=== PATIENT | male | born 1980 | race Two or more races ===

== ENCOUNTER 2020-11-13 13:51 | Emergency (ER) | payer BC ==
[~2020-11-13] VITALS: Ht 172.7 cm; Wt 88.0 kg
[2020-11-13 14:03] VITALS: BP 166/101
[2020-11-13 14:23] LABS: BILIRUBIN,URINE NEGATIVE (NEG); CLARITY,URINE CLEAR; COLOR,URINE YELLOW; NITRITE,URINE NEGATIVE (NEG); PH,URINE 7.5 (<5.0-8.0); PROTEIN,URINE NEGATIVE (NEG-TRACE)
[2020-11-13 14:30] LABS: BACTERIA,URINE 0 /HPF (0-FEW); RBC,URINE 0 /HPF (0-2); WBC,URINE 0 /HPF (0-4)
--- NOTE | 2020-11-13 14:40 | RAD ---
XR THORACIC SPINE 3VIEWS DATE: 11/13/2020 2:23 PM INDICATION: back pain COMPARISON: None. FINDINGS: The upper thoracic vertebrae are obscured on the lateral view by overlying soft tissue and osseous st ructures. Bones/Alignment: No evidence of acute compression fracture. No listhesis. Joints: The disc space heights are normal. Miscellaneous: None. IMPRESSION: No evidence of acute compression fracture. Electronically signed by: Roberto Olmedo MD (11/13/2020 2:37 PM) [id number]
[2020-11-13] MEDS ORDERED: CYCL10TA2 PO (15:04)
[2020-11-13] MEDS ORDERED: METH4TAB2 PO (15:04)
[2020-11-13] MEDS ORDERED: DICL50TA2 PO (15:04)
--- NOTE | 2020-11-13 15:05 | PHYS DOC ---
Past Medical History Past Medical History: No Pertinent History Past Surgical History: No Surgical History Smoking Status: Never Smoker Alcohol Use: Occasionally General Adult EDM: Chief Complaint: BACK PAIN OR INJURY HPI: HPI: Patient is a 40 year old male with no significant medical history who presents to the ED today complaining of 5 out of 10 chronic bilateral shoulder pain as well as left mid back pain. 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 He states yesterday he was doing some home remodeling work and developed left mid back pain. Patient denies falling. Denies any pain radiating to bilateral upper or lower extremities. Denies any loss of bowel or bladder function. Describes the pain as electrical and intermittent. Denies anything specifically relieving the pain. Review of Systems: Review of Systems: Constitutional: Denies fever or chills. [] Eyes: Denies change in visual acuity. [] HENT: Denies nasal congestion or sore throat. [] Respiratory: Denies cough or shortness of breath. [] Cardiovascular: Denies chest pain or edema. [] GI: Denies abdominal pain, nausea, vomiting, bloody stools or diarrhea. [] : Denies dysuria. [] Musculoskeletal: Reports chronic bilateral shoulder pain, left mid back pain. Integument: Denies rash. [] Neurologic: Denies headache, focal weakness or sensory changes. [] Psychiatric: Denies depression or anxiety. [] Heart Score: Risk Factors: Risk Factors: DM, Current or recent (<one month) smoker, HTN, HLP, family history of CAD, obesity. Risk Scores: Score 0 - 3: 2.5% MACE over next 6 weeks - Discharge Home Score 4 - 6: 20.3% MACE over next 6 weeks - Admit for Clinical Observation Score 7 - 10: 72.7% MACE over next 6 weeks - Early Invasive Strategies Allergies: Allergies: Allergies Coded Allergies Type Severity Reaction Last Updated Verified No Known Drug Allergies 11/13/20 No Physical Exam: PE: Constitutional: Well developed, well nourished, no acute distress, non-toxic appearance. [] HENT: Normocephalic, atraumatic, bilateral external ears normal, oropharynx moist, no oral exudates, nose normal. [] Eyes: PERRLA, EOMI, conjunctiva normal, no discharge. [] Neck: Normal range of motion, no tenderness, supple, no stridor. [] Cardiovascular:Heart rate regular rhythm, no murmur [] Lungs & Thorax: Bilateral breath sounds clear to auscultation [] Abdomen: Bowel sounds normal, soft, no tenderness, no masses, no pulsatile masses. [] Skin: Warm, dry, no erythema, no rash. [] Back: No tenderness, no CVA tenderness. [] Extremities: No tenderness, no cyanosis, no clubbing, ROM intact, no edema. [] Neurologic: Alert and oriented X 3, normal motor function, normal sensory function, no focal deficits noted. [] Psychologic: Affect normal, judgement normal, mood normal. [] Current Patient Data: Labs: Laboratory Tests Test 11/13/20 14:10 Urine Collection Type Unknown Urine Color Yellow Urine Clarity Clear Urine pH 7.5 (<5.0-8.0) Urine Specific [place] <=1.005 (1.000-1.030) Urine Protein Negative mg/dL (NEG-TRACE) Urine Glucose (UA) Negative mg/dL (NEG) Urine Ketones (Stick) Negative mg/dL (NEG) Urine Blood Negative (NEG) Urine Nitrite Negative (NEG) Urine Bilirubin Negative (NEG) Urine Urobilinogen Dipstick 1.0 mg/dL (0.2 mg/dL) Urine Leukocyte Esterase Negative (NEG) Urine RBC 0 /HPF (0-2) Urine WBC 0 /HPF (0-4) Urine Bacteria 0 /HPF (0-FEW) Vital Signs: Vital Signs Date Time Temp Pulse Resp B/P (MAP) Pulse Ox O2 Delivery O2 Flow Rate FiO2 11/13/20 14:03 97.8 68 18 166/101 (122) 98 Room Air 97.8 EKG: EKG: [] Radiology/Procedures: Radiology/Procedures: []PROCEDURE: THORACIC SPINE 3V XR THORACIC SPINE 3VIEWS DATE: 11/13/2020 2:23 PM INDICATION: back pain COMPARISON: None. FINDINGS: The upper thoracic vertebrae are obscured on the lateral view by overlying soft tissue and osseous structures. Bones/Alignment: No evidence of acute compression fracture. No listhesis. Joints: The disc space heights are normal. Miscellaneous: None. IMPRESSION: No evidence of acute compression fracture. Electronically signed by: Suly Cárdenas MD (11/13/2020 2:37 PM) [id number] DICTATED and SIGNED BY: SULY CÁRDENAS MD DATE: 11/13/20 [id number] 0 Course & Med Decision Making: Course & Med Decision Making Pertinent Labs and Imaging studies reviewed. (See chart for details) This is a 40-year-old male patient presenting to the ED today with chronic bilateral shoulder pain and left mid back pain that got worse yesterday while doing some home remodeling. Patient denies any actual injury. Has no cauda equina syndrome symptoms. Thoracic spine x-rays are negative. UA is negative for infection of blood. This pain is muscle skeletal. Discharged with Medrol Dosepak, cyclobenzaprine, and diclofenac. Follow-up with PCP in 1 to 2 weeks. Draganish Disclaimer: Dragon Disclaimer: This electronic medical record was generated, in whole or in part, using a voice recognition dictation system. Departure Departure Impression: Primary Impression: Chronic shoulder pain Qualified Codes: M25.511 - Pain in right shoulder; M25.512 - Pain in left shoulder; G89.29 - Other chronic pain Additional Impression: Acute thoracic myofascial strain Qualified Codes: S29.019A - Strain of muscle and tendon of unspecified wall of thorax, initial encounter Disposition: 01 DC HOME SELF CARE/HOMELESS Condition: STABLE Referrals: UNKNOWN PCP NAME (PCP) LUIS ESPINAL MD follow up in one week Patient Instructions: Back Exercises, [id number], Shoulder Pain, [id number], Thoracic Strain, [id number] Additional Instructions: You were evaluated in the emergency room for back pain and shoulder pain. Your x-rays are negative for any acute findings. Use the medicine prescribed as ordered. Please follow-up with your doctor in 1 to 2 weeks, consider applying warm packs to the affected areas. Scripts Diclofenac Potassium (DICLOFENAC POTASSIUM) 50 Mg Tablet 1 TAB PO BID, #20 TAB 0 Refills Prov: EDWIN JOYCE INVESTMENT UNDERWRITER 11/13/20 Methylprednisolone (MEDROL) 4 Mg Tab.ds.pk 1 PKG PO UD, #1 PKG Prov: MUTUNGAEDWIN INVESTMENT UNDERWRITER 11/13/20 Cyclobenzaprine Hcl (CYCLOBENZAPRINE HCL) 10 Mg Tablet 1 TAB PO TID, #30 TAB Prov: MUTUNGAEDWIN INVESTMENT UNDERWRITER 11/13/20 MUTEDWIN PALACIO INVESTMENT UNDERWRITER Nov 13, 2020 15:05
== END 2020-11-13 15:21 | disposition home or self-care (01) ==
LOC: ER 13:51
DX: S29.012A Strain of muscle and tendon of back wall of thorax, initial encounter (principal); G89.29 Other chronic pain; M25.511 Pain in right shoulder; M25.512 Pain in left shoulder; X58.XXXA Exposure to other specified factors, initial encounter; Y93.89 Activity, other specified; Y92.89 Other specified places as the place of occurrence of the external cause; Y99.0 Civilian activity done for income or pay
CPT/HCPCS: 72072; 81001; 99284